=== PATIENT | female | born 1995 | race Caucasian/White ===

== ENCOUNTER 2023-02-14 12:52 | Outpatient (CLI) | payer OTHER, SELFPAY ==
--- NOTE | ~2023-02-14 | CT_ITS ---
EXAMINATION: CT abdomen pelvis wo con DATE: 02/14/2023 13:17 INDICATION: Left flank TECHNIQUE: Computed tomography (CT) of the abdomen and pelvis was performed without intravenous contr ast. The dose-length product was 294.51 mGy-cm. Automated exposure control and iterative reconstruction technique were employed. COMPARISON: 02/13/2005 FINDINGS: Lung bases are unremarkable. Heart size is normal. No significant pleural or pericardial ef fusion. There is a 4.5 cm left ovarian cyst. The liver, spleen, pancreas, adrenal glands and right kidney are unremarkable. There is a 3 mm nonobs tructing left renal stone. No left ureteral stone or hydronephrosis. Gallbladder is present. No signi ficant vascular abnormality. No lymphadenopathy. IMPRESSION: 1. Left ovarian cyst measuring 4.5 cm. 2: Nonobstructing 3 mm left renal stone. Reviewed, dictated and finalized at [facility].
== END 2023-02-14 12:53 | disposition home or self-care (01) ==
PROVIDERS: PCP Family Medicine; Visit Provider Physician Assistant
DX: R10.9 Unspecified abdominal pain (principal); N83.202 Unspecified ovarian cyst, left side; N20.0 Calculus of kidney
CPT/HCPCS: 74176

== ENCOUNTER 2023-02-22 07:49 | Outpatient (CLI) | payer OTHER, SELFPAY ==
--- NOTE | ~2023-02-22 | US_ITS ---
Pelvic ultrasound. Clinical History: Left ovarian cyst Technique: Realtime transabdominal and transvaginal scanning of the pelvis was performed. Color flow Doppler and Doppler spectral analysis were performed. Findings: The uterus is anteverted. The endometrial stripe has a thickness of 2 mm. No focal mass is identified. The right ovary measures 1.6 x 1.3 x 2.2 cm. No significant right ovarian or adnexal mass is seen. The left ovary measures 5.1 x 3.3 x 3.9 cm. Left ovarian cyst measures 4.4 x 3.2 cm, with somewhat ec centric low-level internal echoes.. There is no evidence of free fluid in the cul de sac. Impression: 4.4 cm mildly complex left ovarian cyst, likely resolving hemorrhagic cyst. Reviewed, dictated and finalized at [facility]. Impression: 4.4 cm mildly complex left ovarian cyst, likely resolving hemorrhagic cyst.
== END 2023-02-22 07:50 | disposition home or self-care (01) ==
LOC: CHSIMG 07:51
PROVIDERS: PCP Family Medicine; Visit Provider Physician Assistant
DX: N83.202 Unspecified ovarian cyst, left side (principal); N83.292 Other ovarian cyst, left side
CPT/HCPCS: 76830; 76856

== ENCOUNTER 2023-03-30 11:22 | Emergency (ER) | payer OTHER, SELFPAY ==
--- NOTE | ~2023-03-30 | CT_ITS ---
EXAMINATION: CT abdomen pelvis w con DATE: 03/30/2023 13:01 INDICATION: Left-sided abdominal pain, worse over the past 3 days. TECHNIQUE: Computed tomography (CT) of the abdomen and pelvis was performed with 100 CC Omnipaque 350 intravenous contrast. Automated exposure control and iterative reconstruction technique were employe d. Exam dose: 928.53 mGy-cm total exam DLP. COMPARISON: 02/14/2023 CT abdomen pelvis 02/22/2023 complete pelvic ultrasound FINDINGS: There is minimal dependent left lower lobe atelectasis. Heart size is within normal range. No pericardial or pleural effusion. The liver, gallbladder, bile ducts, pancreatic duct, pancreas and spleen are unremarkable. Normal morphology of the adrenal glands. There is an approximately 3 mm obstructing calculus at the very proximal left ureter with mild left h ydronephrosis and left nephromegaly. No other urinary tract calculus or hydroureteronephrosis. The uterus and adnexal areas are unremarkable other than 1.5 cm left ovarian cyst, considerably dimin ished in size since 02/14/2023. The urinary bladder is relatively evacuated but otherwise unremarkable . Normal caliber of the abdominal aorta. No intraperitoneal or retroperitoneal or pelvic mass lesion or adenopathy or ascites. Normal appendix. No bowel obstruction or intraperitoneal free air. Included skeletal structures are unremarkable. IMPRESSION: 3 mm obstructing right proximal left ureteral calculus with mild to moderate left hydron ephrosis Reviewed, dictated and finalized at [facility]. Reviewed, dictated and finalized at [facility]. IMPRESSION: 3 mm obstructing right proximal left ureteral calculus with mild t o moderate left hydronephrosis
[2023-03-30 11:25] VITALS: BP 131/85; PULSE 68; RESP 18; TEMP 37; O2SAT 98
[2023-03-30 11:55] LABS: Basophils Absolute Auto 0.03 K/mm3 (0.00-0.10); Basophils Percent Auto 0.3 % (0.0-1.0); Eosinophils Absolute Auto 0.11 K/mm3 (0.02-0.50); Eosinophils Percent Auto 1.2 % (1.0-6.0); Hematocrit 38.7 % (35.0-49.0); Hemoglobin 12.9 g/dL (12.0-15.0); Immature Granulocyte Absolute 0.03 K/mm3 (0.00-0.00); Immature Granulocyte Percent A 0.3 % (0.0-0.0); Lymphocytes Percent Auto 25.4 % (18.0-42.0); Mean Corpuscular HGB Conc 33.3 g/dL (32.0-36.0); Mean Corpuscular Hemoglobin 32.1 pg (27.0-31.0); Mean Corpuscular Volume 96.3 fL (78.0-102.0); Mean Platelet Volume 10.7 fl (9.2-11.8); Monocytes Absolute Auto 0.86 K/mm3 (0.10-0.90); Monocytes Percent Auto 9.5 % (2.0-11.0); Neutrophils Absolute Auto 5.7 K/mm3 (1.7-7.2); Neutrophils Percent Auto 63.3 % (50.0-70.0); Platelet Count Result 212 K/mm3 (150-420); Red Blood Count 4.02 M/mm3 (4.20-5.40); Red Cell Distribution Width 12.1 % (11.6-14.4)
[2023-03-30] MEDS: SODIUM CHLORIDE 0.9% IV 1,000 ML 999 ML IV CONT (11:59)
[2023-03-30] MEDS: KETOROLAC 30 MG/ML VIAL (*BKC) IV PUSH (12:00)
[2023-03-30] MEDS: ONDANSETRON INJ 4 MG/2 ML VIAL IV PUSH (12:01)
[2023-03-30 12:10] LABS: Alanine Aminotransferase 21 U/L (14-59); Albumin Level 3.7 g/dL (3.4-5.0); Alkaline Phosphatase 63 U/L (46-116); Anion Gap 14 mmol/L (8-16); Aspartate Amino Transferase < 10 U/L (15-37); Bilirubin,Total 0.6 mg/dL (0.00-1.00); Blood Urea Nitrogen 19 mg/dL (7-18); Calcium 9.5 mg/dL (8.5-10.1); Carbon Dioxide 23 mmol/L (21-32); Chloride 104 mmol/L (98-108); Estimated CRCL calculation 85 ml/min; Estimated Glomerular Filt Rate > 60; Glucose 100 mg/dL (70-99); Lipase 16 U/L (16-77); Osmolality Calculated 294 mOsm/kg (285-295); Potassium 3.6 mmol/L (3.5-5.1); Sodium 141 mmol/L (136-145); Total Protein 7.7 g/dL (6.4-8.2)
[2023-03-30 12:33] LABS: Appearance Urine Cloudy (Clear); Bilirubin Urine Negative (Negative); Blood Urine 3+ (Negative); Color Urine Yellow (Yellow); Glucose Urine UA Negative (Negative); Ketones Urine 1+ (Negative); Leukocyte Esterase Ur 2+ (Negative); Nitrate Urine Positive (Negative); Protein Urine 2+ (Negative); Specific Grav Ur >= 1.030 (1.010-1.020)
[2023-03-30 12:36] LABS: Pregnancy On Board Control Positive; Urine Pregnancy Test Negative
[2023-03-30 12:36] LABS: Add Urine Microscopic? YES; Bacteria Urine 3+ /hpf; Squamous Epithelial Cell Urine Moderate /hpf (Few)
--- NOTE | 2023-03-30 12:50 | ED.ABDPAIN ---
HPI - Abdominal Pain General Chief Complaint: Urogenital-Female Stated Complaint: L flank/abdominal pain Time Seen by Provider: 03/30/23 11:33 Source: patient and family Mode of arrival: ambulatory Limitations: no limitations History of Present Illness HPI narrative: This is a 27-year-old female who presents with abdominal pain suprapubic with left flank discomfort with no hematuria no fever chills does have nausea and few episodes of vomiting prior to arrival to the ER, there is no chest pain no shortness of breath no diarrhea or constipation. Patient states that she has had ovarian cyst, and left kidney stone and had followed up with urologist that says that this is not causing her pain discomfort. MD elicited complaint: abdominal pain and flank pain Onset (ago): day(s) Pain Consistency: constant Location: periumbilical, L flank and suprapubic Severity: similar to previous episodes Quality: cramping and aching Radiation: L flank Exacerbating factors: nothing Relieving factors: nothing Related Data Allergies Allergy/AdvReac Type Severity Reaction Status Date / Time No Known Allergies Allergy Unverified 11/11/18 10:21 Review of Systems Review of Systems: All systems reviewed & are unremarkable except as noted in HPI and below PMFSH Past Medical History Medical History Kidney stone Exam Const: General: healthy appearing Nutritional Appearance: well nourished Orientation/consciousness: patient oriented x3 Limitations: no limitations Chest: Chest palpation & inspection: normal inspection of the chest Resp: Effort & Inspection: normal respiratory effort Auscultation: clear to auscultation bilaterally Cardio: Rate: regular rate Rhythm: regular rhythm GI: GI Palp: Yes Soft to palpation and Yes Tenderness to palpation present (GI) Auscultation: normal bowel sounds : General: Yes Bladder palpation abnormal and Yes CVA tenderness Back/Spine/Pelvis: Back: CVA tenderness Skin: General skin exam: normal color Rashes: no rashes Neuro: General: patient oriented x3 and moves all extremities Extrem: General: normal to inspection Course Course Emergency Course: labs reviewed with patient which does not appear to have any abnormalities that are significant white count within normal range, patient did have urinalysis which shows that she has a urinary tract infection, CT scan performed reviewed which shows a thrill is 3mm obstructing stone with mild hydronephrosis on the left., the patient received IV fluids and Toradol for pain. Vital Signs Vital signs: Vital Signs Temperature 37.0 C 03/30/23 11:25 Pulse Rate 68 03/30/23 11:25 Respiratory Rate 18 03/30/23 11:25 Blood Pressure 131/85 03/30/23 11:25 Pulse Oximetry 98 03/30/23 11:25 Oxygen Delivery Room Air 03/30/23 11:25 Temperature 37.0 C 03/30/23 11:25 Pulse Rate 68 03/30/23 11:25 Respiratory Rate 18 03/30/23 11:25 Blood Pressure 131/85 03/30/23 11:25 Pulse Oximetry 98 03/30/23 11:25 Oxygen Delivery Room Air 03/30/23 11:25 MDM - Abdominal Pain Lab Data 03/30/23 11:52 03/30/23 11:52 Labs: Lab Results 03/30/23 03/30/23 03/30/23 Range/Units 11:52 12:29 12:30 WBC 9.0 (4.8-10.8) K/mm3 RBC 4.02 L (4.20-5.40) M/mm3 Hgb 12.9 (12.0-15.0) g/dL Hct 38.7 (35.0-49.0) % MCV 96.3 (78.0-102.0) fL MCH 32.1 H (27.0-31.0) pg MCHC 33.3 (32.0-36.0) g/dL RDW 12.1 (11.6-14.4) % Plt Count 212 (150-420) K/mm3 MPV 10.7 (9.2-11.8) fl Immature Gran % (Auto) 0.3 H (0.0-0.0) % Neut % (Auto) 63.3 (50.0-70.0) % Lymph % (Auto) 25.4 (18.0-42.0) % [place] % (Auto) 9.5 (2.0-11.0) % Eos % (Auto) 1.2 (1.0-6.0) % Baso % (Auto) 0.3 (0.0-1.0) % Lymph # (Auto) 2.30 (1.10-4.50) K/mm3 [place] # (Auto) 0.86 (0.10-0.90) K/mm3 Eos # (Auto) 0.11 (0.02-0.50) K/mm3
[2023-03-30 13:41] VITALS: BP 125/88; PULSE 78; RESP 20; TEMP 37; O2SAT 98
== END 2023-03-30 13:47 | disposition home or self-care (01) ==
PROVIDERS: Emergency Provider Emergency Medicine; PCP Family Medicine
DX: N30.00 Acute cystitis without hematuria (principal); N21.1 Calculus in urethra
CPT/HCPCS: 36415; 74177; 80053; 81001; 81025; 83690; 85025; 96361; 96374; 96375; 99284; J1885; J2405; J7030; Q9967